=== PATIENT | female | born 1970 | race Caucasian/White ===

== ENCOUNTER → 2016-12-06 | Outpatient (CLI) | payer OTHER ==
[~2016-12-06] MED LIST: ALTACE PO; CLARITIN10 MG PO; CRESTOR PO; DARVOCET-N 1001 TAB PO; LEVAQUIN750 MG PO; LEVORA; LISINOPRIL-HCTZ1 T18; METRONIDAZOLE PO; MEVACOR20 M1; PERCOCET PO; PHENERGAN PO; SYNTHROID PO
--- NOTE | ~2016-12-06 | MY29 ---
[facility] A Service of [facility] RADIOLOGY TEXT RESULTS PATIENT: ISABEL HYMAN LOCATION: [facility] : 68 UNIT #: [id number] AGE: [address]: Abdirahman Roldan MD SEX: F ORDER DR: [id number] [facility] [address] [place], [place] [address] [id number] O MR#: [id number] Acc #: [id number] NAME: ISABEL HYMAN : 1970 SEX: F STUDY DATE/TIME: 12/06/2016 11:58 UNIT: [facility] ROOM: STUDY DESCRIPTION: MY CLIFFORD SCREENING W/ CAD BILAT Attending Physician: Abdirahman Roldan M.D. Referring Physician: Abdirahman Roldan M.D. Ordering Physician: Abdirahman Roldan M.D. Primary Care Physician: Abdirahman Roldan M.D. MEDICAL IMAGING REPORT This report is preliminary unless electronic signature is present EXAM Bilateral digital screening mammogram with CAD DATE 12/06/2016 HISTORY 46-year-old female, family history of breast cancer in her grandmother at the age of 60. No personal history of breast cancer or current complaints. COMPARISON Bilateral screening mammogram 09/08/2015 and 06/05/2014. FINDINGS CC and MLO views and extended craniocaudal lateral views were obtained of each breast utilizing digital technique and reviewed with an FDA-approved CAD device. Scattered fibroglandular densities are present bilaterally. No suspicious nodule, architectural distortion or clustered microcalcification is seen. IMPRESSION Negative screening mammogram. Routine screening mammogram is recommended in one year. Patient's over the age of 40 are entered into a reminder system with target due date for the next mammogram. A result letter will be sent to the patient. BIRADS: 1 Negative Dictated by... [facility] A Service of [facility] RADIOLOGY TEXT RESULTS PATIENT: ISABEL HYMAN LOCATION: [facility] : 68 UNIT #: [id number] AGE: [address]: Abdirahman Roldan MD SEX: F ORDER DR: Liza Wang M.D. THIS IS AN ELECTRONICALLY VERIFIED REPORT Liza Wang M.D. at 12/09/2016 8:[address] [facility]/meenu TD: 12/06/2016 22:12 JOB #: [id number] MEDICAL IMAGING REPORT Page 1 of 1 COPY
== END | disposition home or self-care (01) ==
LOC: CWCC 11:50
DX: Z12.31 Encounter for screening mammogram for malignant neoplasm of breast (principal); Z80.3 Family history of malignant neoplasm of breast
CPT/HCPCS: G0202